=== PATIENT | male | born 1940 | race Caucasian/White ===

== ENCOUNTER 2017-06-28 09:50 | Emergency (ER) | payer MEDICARE, OTHER ==
--- NOTE | 2017-06-28 11:04 | UC ---
Neck Pain HPI - HPI Summary HPI Summary: Since childhood he has had decreased rom of the neck. This may be due to an injury he sustained at age 11. 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 He now has had more pain in the neck with movement for about the last 2 weeks or so. He also has headaches that start posteriorly around the neck. No new numbness or weakness. he had a small fall from kneeling height about 2 weeks ago while installing some olga. He does not follow with c casework specialist. Pain is better with certain positions, heat and tylenol. Pt does not want any new prescriptions. He says he is here mainly for x rays that his pcp wanted. - History of Current Complaint Chief Complaint: Sarahy Stated Complaint: FARRELL/NECK PAIN *2WEEKS Time Seen by Provider: 06/28/17 10:15 Hx Obtained From: Patient Onset/Duration Of Injury/Symptoms: Weeks Mechanism Of Injury: Blunt Trauma - Minor. Timing: Constant Onset/Duration: Gradual Onset - He is not sure if the simple fall was the cause of this increased pain. Severity: Moderate Pain Intensity: 6 Location: Diffuse - He points to angela paraspinal area at the base of the skull. Character: Aching, Stiff Aggravating Factors: Position, Movement Alleviating Factors: Position, Heat, OTC Meds Associated Signs & Symptoms: Positive: Headache. Negative: Swelling, Redness, Fever, Weakness, Paresthesia - Allergies/Home Medications Allergies/Adverse Reactions: Allergies Allergy/AdvReac Type Severity Reaction Status Date / Time doxycycline Allergy Severe Airway Verified 06/28/17 10:30 Obstruction Tetracyclines Allergy Severe Airway Verified 06/28/17 11:07 Obstruction cefazolin Allergy Unknown Verified 06/28/17 11:07 Reaction Details ciprofloxacin [From Cipro] Allergy Unknown Verified 06/28/17 11:07 Reaction Details moxifloxacin [From Avelox] Allergy Unknown Verified 06/28/17 11:07 Reaction Details Home Medications: Home Medications Acetaminophen [Pain Relief] 500 mg PO Q3H PRN 06/28/17 [History Confirmed ] Losartan TAB* [Cozaar TAB*] 50 mg PO DAILY 06/28/17 [History Confirmed 06/28/17] Nitroglycerin [Nitrostat] 0.3 mg SL SEE INSTRUCTIONS 06/28/17 [History Confirmed 06/28/17] metFORMIN* [Glucophage 500 MG TAB *] 1,000 mg PO DAILY 06/28/17 [History Confirmed 06/28/17] PMH/Surg Hx/FS Hx/Imm Hx Previously Healthy: No - Surgical History Surgical History: Yes Surgery Procedure, Year, and Place: open heart, gallbladder - Family History Known Family History: Positive: Other - No related spine family history. - Social History Alcohol Use: None Substance Use Type: None Smoking Status (MU): Former Smoker Type: Cigarettes Length of Time of Smoking/Using Tobacco: 40 yrs Have You Smoked in the Last Year: No When Did the Patient Quit Smoking/Using Tobacco: 1994 Review Of Systems Musculoskeletal: Positive: Arthralgia, Myalgia Neurological: Positive: Headache All Other Systems Reviewed And Are Negative: Yes Physical Exam Triage Information Reviewed: Yes Appearance: Well-Appearing - No obvious pain or discomfort until he tries to move his head to the angela sides., No Pain Distress, Obese Vital Signs: Initial Vital Signs Temp 98.2 F 06/28/17 10:05 Pulse 70 06/28/17 10:05 Resp 18 06/28/17 10:05 BP 124/49 06/28/17 10:05 Pulse Ox 97 06/28/17 10:05 Vital Signs Reviewed: Yes Eyes: Positive: Conjunctiva Clear ENT: Positive: Normal ENT inspection Neck: Positive: Supple, Nontender, No Lymphadenopathy. Negative: Nuchal Rigidity Respiratory: Positive: Lungs clear, Normal breath sounds, No respiratory distress, No accessory muscle use. Negative: Respiratory distress, Decreased breath sounds, Accessory muscle use, Crackles, Rhonchi Cardiovascular: Positive: Pulses Normal Abdomen Description: Positive: Soft. Negative: Distended, Guarding Musculoskeletal: Positive: Strength Intact, ROM Intact, No Edema Neurological: Positive: Alert, Muscle Tone Normal. Negative: Fatigued Psychological: Positive: Age Appropriate Behavior Skin: Negative: rashes Diagnostics - Radiology No standard instances Radiology Interpretation Completed By: ED Physician, Radiologist Neck Pain Course/Dx - Differential Dx/Diagnosis Provider Diagnoses: neck pain. arthritis. Discharge - Sign-Out/Discharge Documenting (check all that apply): Discharge/Admit/Transfer - Discharge Plan Condition: Good Disposition: HOME Patient Education Materials: Cervical Sprain (ED), Neck Pain (ED), Chronic Neck Pain (DC) Referrals: LORENE Gurrola [Primary Care Provider] - Mor Koroma MD [Medical Doctor] - - Billing Disposition and Condition Condition: GOOD Disposition: HOME
--- NOTE | 2017-06-28 11:52 | RAD ---
Indication: Neck pain. 3 views of the cervical spine are reviewed. The vertebral bodies appear normal in height. Syndesmophytes are noted at C4-C5, C5-C6 and C6-C7. Spinal canal appears to be intact. IMPRESSION: Anterior syndesmophytes are noted at C4-C5, C5-C6 and C6-C7. No fracture is noted.
[2017-06-28 12:18] VITALS: BP 126/54
== END 2017-06-28 12:19 | disposition home or self-care (01) ==
LOC: UCCORT 09:50
DX: M19.90 Unspecified osteoarthritis, unspecified site (principal); M54.2 Cervicalgia; R51 Headache; Z88.1 Allergy status to other antibiotic agents; Z87.891 Personal history of nicotine dependence
CPT/HCPCS: 72040; 99211; G0463

== ENCOUNTER 2017-07-29 17:05 | Emergency (ER) | payer MEDICARE, OTHER ==
[2017-07-29 17:29] VITALS: BP 133/57
--- NOTE | 2017-07-29 18:37 | UC ---
Skin Complaint HPI - HPI Summary HPI Summary: developed a puretic rash about 4 weeks ago---multiple scabbed areas on arms, back and abdomen. 2 days ago he stopped Coumadin and began 120 mg po bid of lovanox. One day ago patient developed bleeding at many of the scabbed sites - History of Current Complaint Chief Complaint: UCGeneralIllness Time Seen by Provider: 07/29/17 17:59 Stated Complaint: MED CHANGE/BLEEDING ISSUE Hx Obtained From: Patient Onset/Duration: Sudden Onset, Lasting Days - 2, Still Present Timing: Constant Location: Diffuse Character: Pruritus Aggravating Factor(s): Nothing Alleviating Factor(s): Nothing Associated Signs & Symptoms: Positive: Negative, Rash - Allergy/Home Medications Allergies/Adverse Reactions: Allergies Allergy/AdvReac Type Severity Reaction Status Date / Time doxycycline Allergy Severe Airway Verified 06/28/17 10:30 Obstruction Tetracyclines Allergy Severe Airway Verified 06/28/17 11:07 Obstruction cefazolin Allergy Unknown Verified 06/28/17 11:07 Reaction Details ciprofloxacin [From Cipro] Allergy Unknown Verified 06/28/17 11:07 Reaction Details moxifloxacin [From Avelox] Allergy Unknown Verified 06/28/17 11:07 Reaction Details Review of Systems Constitutional: Negative Skin: Negative, Rash, Bruising, Other - bleeding Eyes: Negative ENT: Negative Respiratory: Negative Cardiovascular: Negative Gastrointestinal: Negative Genitourinary: Negative Motor: Negative Neurovascular: Negative Musculoskeletal: Negative Neurological: Negative Psychological: Negative Is Patient Immunocompromised?: No All Other Systems Reviewed And Are Negative: Yes PMH/Surg Hx/FS Hx/Imm Hx Previously Healthy: Yes Endocrine History: Diabetes, Hypothyroidism Cardiovascular History: Cardiac Disease, Hypertension, Pacemaker/ICD GI/ History: Gastroesophageal Reflux - Surgical History Surgical History: Yes Surgery Procedure, Year, and Place: open heart, gallbladder, PACEMAKER. SNEHAL CATARACT - Family History Known Family History: Positive: None, Other - No related spine family history. - Social History Occupation: Retired Lives: With Family Alcohol Use: None Substance Use Type: None Smoking Status (MU): Former Smoker Type: Cigarettes Length of Time of Smoking/Using Tobacco: 40 yrs Have You Smoked in the Last Year: No When Did the Patient Quit Smoking/Using Tobacco: 1994 Physical Exam Triage Information Reviewed: Yes Appearance: No Pain Distress, Well-Nourished Vital Signs: Initial Vital Signs Temp 97.9 F 07/29/17 17:22 Pulse 68 07/29/17 17:22 Resp 18 07/29/17 17:22 BP 133/57 07/29/17 17:22 Pulse Ox 98 07/29/17 17:22 Vital Signs Reviewed: Yes Eye Exam: Normal Eyes: Positive: Conjunctiva Clear ENT Exam: Normal ENT: Positive: Normal ENT inspection, Hearing grossly normal. Negative: Trismus , Muffled voice, Hoarse voice Dental Exam: Normal Neck exam: Normal Neck: Positive: Supple, Nontender Respiratory Exam: Normal Respiratory: Positive: Chest non-tender, Lungs clear, No accessory muscle use Cardiovascular Exam: Normal Cardiovascular: Positive: RRR, Pulses Normal, Brisk Capillary Refill Musculoskeletal Exam: Normal Musculoskeletal: Positive: Strength Intact, ROM Intact, No Edema Neurological Exam: Normal Neurological: Positive: Alert, Muscle Tone Normal Psychological Exam: Normal Psychological: Positive: Normal Response To Family, Age Appropriate Behavior Skin Exam: Normal Skin: Positive: Other - bruised and bleeding scabbed areas Diagnostics - Laboratory Diagnostic Studies Completed/Ordered: 1 of 1 Course/Dx - Course Course Of Treatment: to [facility] by private car with driving - Diagnoses Provider Diagnoses: Blooding disorder - Physician Notification/Consults Time Discussed With Above Provider: 18:30 - Mona Peters Discharge - Sign-Out/Discharge Documenting (check all that apply): Discharge/Admit/Transfer - Discharge Plan Condition: Guarded Disposition: HOME Discharge Disposition Comment: to [facility] by Private car Patient Education Materials: Bleeding Disorders (ED) Referrals: LORENE Gurrola [Primary Care Provider] - Additional Instructions: You are going directly to [facility] ED for further assessment of bleeding - Billing Disposition and Condition Condition: GUARDED Disposition: Home
== END 2017-07-29 18:15 | disposition home or self-care (01) ==
LOC: UCCORT 17:05
DX: D68.9 Coagulation defect, unspecified (principal); Z88.1 Allergy status to other antibiotic agents; Z87.891 Personal history of nicotine dependence; Z79.01 Long term (current) use of anticoagulants; E11.9 Type 2 diabetes mellitus without complications; I10 Essential (primary) hypertension; Z95.810 Presence of automatic (implantable) cardiac defibrillator; Z79.891 Long term (current) use of opiate analgesic
CPT/HCPCS: 99212; G0463